=== PATIENT | female | born 1970 | race Caucasian/White ===

== ENCOUNTER 2017-05-15 01:51 | Inpatient (IN) | payer MEDICAID, OTHER ==
[~2017-05-15] VITALS: Ht 165.1 cm; Wt 86.2 kg
[2017-05-15 01:57] VITALS: BP 162/93; PULSE 129; RESP 21; O2SAT 93
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
[2017-05-15 04:31] VITALS: PULSE 77; RESP 14; O2SAT 95
[2017-05-15 05:46] LABS: Mean Corpuscular Hemoglobin 29.5 pg (27.0-35.0); Mean Corpuscular Volume 85.5 fL (81-100)
[2017-05-15 12:11] VITALS: BP 145/83; PULSE 66; RESP 18; O2SAT 99
[2017-05-15] MEDS ORDERED: LORazepam 1 mg Tablet PO ONE (13:15)
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
[2017-05-15] MEDS ORDERED: Magnesium Hydroxide 10 mL Oral Concentration PO PRN (14:55)
[2017-05-15] MEDS ORDERED: Benzocaine-Menthol Lozenge 2/Pkg PO PRN (14:55)
[2017-05-15] MEDS ORDERED: Alum-Mag Hydrox-Simeth 30 mL Suspension PO PRN (14:55)
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
[2017-05-15] MEDS: LORazepam 1 mg Tablet PO SCH (20:30)
--- NOTE | 2017-05-15 23:21 | NUR ---
Nurses Note Evening Patient has been maintained on 1:1 for safety. She awakened briefly to walk the hallway requesting to see her son in the morgue. Patient refused fluids or food or medications. Will continue 1:1 for safety. Addendum: 05/15/17 at 2335 by DEEDEE SEWELL RN Amended: Links added.
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
[2017-05-16] MEDS: LORazepam 1 mg Tablet PO PRN ×2 (03:27→14:48)
--- NOTE | 2017-05-16 05:38 | NUR ---
nursing, nights, 11-7 s- my baby. i just want to be with my baby. i've wanted to be with him for two days. no i don't need any medicine. i don't remember. o- has appeared to sleep after 2144. awoke and started sobbing. responded well to staff support and was able to calm. has one to one staff for safety with q 15 minutes. a- interupted sleep, no apparent physical distress. p- monitor behavior/emotional state, quality, times and amount of sleep, use and effect of medication. heather
--- NOTE | 2017-05-16 08:07 | NUR ---
Nursing Days The pt's friend, Janet, called this morning to share information. The friend stated Danya told her she was going to kill herself as soon as she leaves the hospital. This friend also shared that the patient's 16 year old son is also at risk for killing himself because he was also a witness to the family fight and suicide of his older brother. She reports she has been Danya's friend for over 20 years and is like a sister to her. She would like to be involved and a support to Danya during and after her hospitalization. Addendum: 05/16/17 at 1100 by ASHANTI URBINA RN Pt intermittently sobbing and sleeping in bed with a 1:1 sitter at bedside. She is currently declining all offered medication. She is repeatedly requesting to see her son. Doctor aware of her request. She has refused medications prior to court. Addendum: 05/16/17 at 1254 by ASHANTI URBINA RN Pt out on the patio with her 1:1 sitter for fresh air. The sitter shared that Danya told her she would like to have counseling for her and her family but did not have the knowledge or personal ability to coordinate that for herself. This information shared with both doctor and case management.
[2017-05-16] MEDS: LORazepam 1 mg Tablet PO SCH ×3 (08:30→19:47)
[2017-05-16 11:03] VITALS: BP 152/93; PULSE 80; RESP 14
--- NOTE | 2017-05-16 16:09 | PCM.PNPSY ---
Subjective Date of Service May 16, 2017 Subjective Patient continued tearful and had difficulty answering questions. She continued to express a desire to see her son in the morgue. I explained that this was not likely appropriate or helpful and that was recommended that she see him at the home. The patient continued to assert that she did not want any medications. I discussed with patient that she has a long-standing history of depression and irritability and that we would be writing for escitalopram that she was not required to take it. She was encouraged to take lorazepam as prescribed. Sleep: 6.25 hours Appetite: Has not eaten since arrival. Suicidal and homicidal ideation: nodded head yes to suicidal ideation but did not discuss plan or intent. Auditory hallucinations: denies Visual hallucinations: denies Other Psychotic Symptoms: N/A Anxiety: elevated Depression: elevated Current Medications Current Medications Escitalopram Oxalate 10 mg DAILY PO Last administered on 05/16/17 13:46; Admin Dose 10 MG; Start 05/16/17 at 13:10 Lorazepam 1 mg Q4H PRN PO Last administered on 05/16/17 14:48; Admin Dose 1 MG ; Start 05/15/17 at 14:55 Lorazepam 1 mg TID PO Last administered on 05/16/17 13:46; Admin Dose 1 MG; Start 05/15/17 at 20:30 Lorazepam 2 mg ONCE ONCE IM Last administered on 05/15/17 02:50; Admin Dose 2 MG; Start 05/15/17 at 02:05; Stop 05/15/17 at 02:06; Status DC Lorazepam 2 mg ONCE ONCE IM Last administered on 05/15/17 08:35; Admin Dose 2 MG; Start 05/15/17 at 08:10; Stop 05/15/17 at 08:11; Status DC Mental Status Exam Vital Signs Vital Signs Date Time Temp Pulse Resp B/P Pulse Ox O2 Delivery O2 Flow Rate FiO2 05/16/17 11:03 36.5 80 14 152/93 Appearance: Unkept Attitude: Guarded Behavior: Overtly anxious, Tearful Affect: Labile Mood: Depressed Thought Process/Associations: Other (poverty of speech) Speech Production: Soft, Mumbled Speech Rate: Lags/Latency Speech Articulation: Other (whispered) Thought Content: Negativistic Danger to Self/Suicidal Ideati: Passive Danger to Others: None Hallucinations: Auditory (Denies), Visual (Denies) Consciousness: Alert Orientation: Person, Place, Situation Memory: Untestable Estimate Intellectual Function: Unable to assess Attention/Concentration & Cogn: Unable to assess Insight: Limited Judgement: Poor Result Diagram: 05/15/17 0540 05/15/17 0540 Mental Health Plan The patient is a 47-year-old female with a reported 20 year history of depression without manic episodes, who was admitted to the hospital on an involuntary basis following the witnessed the suicide of her 23-year-old son. The patient has continued to remain tearful and has not been eating but has been drinking fluids. She has declined all oral medication including lorazepam. The patient had a visit with her and daughter and grief counselor's and was given resources today. [place] AXIS I: 1. Depression by history. 2. Acute stress reaction. 3. Rule out marijuana use disorder. AXIS II: Deferred. AXIS III: None. AXIS IV: Recent suicide of son, family stress, financial stress, recent new job. AXIS V: Global Assessment of Functioning 25. Treatments 1. The patient is admitted to the mental health unit and provided a safe and secure environment. 2. The patient is currently expressing suicidal ideation, and given the severity of the precipitating event and high risk of self harm, the patient will be placed on a one-to-one until she can safely contract for no self harm. 3. The patient will be encouraged to participate with group and milieu activities when her acute phase has resolved. 4. The patient will be seen by the treatment team on a routine basis to assess symptoms, side effects, and response to treatment. 5. The patient will be offered escitalopram 10 mg daily 6. Lorazepam 1 mg three times a day for acute stress with additional as needed. 7. Zolpidem 5 mg p.o. nightly p.r.n. insomnia. 8. Anticipated length of stay is 7-10 days. Avelino Rivas MD May 16, 2017 16:09
--- NOTE | 2017-05-16 17:04 | NUR ---
PRN's 1448 Ativan 1 mg for anxiety 10/10. Minimally effective, anxiety reduced to 9/10.
--- NOTE | 2017-05-16 17:24 | NUR ---
spiritual care: pt request brief caring visit in pt's room. she awoke briefly to voice, acknowledged our time together in ER yesterday. will plan to follow as needed and can coordinate with out pt bereavement services/counseling as needed.
--- NOTE | 2017-05-16 18:31 | NUR ---
Observations [id number] Pt under 1:1 observation. Spent much of her day in bed, crying. Pt did not eat any meals, but she did walk unit with 1:1 and spent time out on patio to get fresh air. Pt was also able to visit with family and grief counselor.She showered in the evening. She was observed every 15 minutes of shift as directed.
--- NOTE | 2017-05-16 18:40 | NUR ---
Machine Sewer/Counselor: S: "I don't want any pills" O: Patient slept 6.25 hours last night per staff. Patient reports thoughts of hurting herself. She denies H/I. She also denies auditory and visual hallucinations. Depression and anxiety were not rated. A: Patient is cooperative, sobbing, helpless, hopeless, depressed, distraught, no insight, no judgment. P: Follow the care plan, coordinate with out-patient providers, monitor behavior.
--- NOTE | 2017-05-16 20:11 | NUR ---
Nurses Note Evening Patient remains on 1:1 for safety. She remains tearful with a flat affect,depressed mood. Patient did shower and change her clothing. She drank one juice and has been ambulating with staff. Patient has been able to talk with staff at intervals but it results in tears. Continue 1;1 for safety and support. Addendum: 05/16/17 at 2020 by DEEDEE SEWELL RN Amended: Links added.
--- NOTE | 2017-05-17 03:47 | NUR ---
Nursing Noc Patient noted to spend the evening in Milieu watching TV. Appears detached and distracted, taking medications as directed. 1:1 sitter in use r/t patients inability to contract for safety. Continuing to monitor mood behavior and emotional state. Sleep time and quality. CP
[2017-05-17] MEDS: LORazepam 1 mg Tablet PO SCH ×3 (09:14→20:15)
--- NOTE | 2017-05-17 14:58 | NUR ---
NURSE NOTE DAY Orientation: x3 Mood: "I can't imagine how I will live." Endorses severe depression and some anxiety. Affect: Tearful. Thought Process/Content: "I just want to see my boy come in the door. The war inside me isn't over. Sometimes I want to to see my baby; sometimes I want to be here for my family." Endorses SI. Denies HI. Denies AH, VH. Behavior: Up for dog therapy, observed smiling when petting dog. Up walking with 1:1 in afternoon. otherwise, pt has isolated in room much of day. PRNs/NURS: Pt has 1:1 for suicidality.
--- NOTE | 2017-05-17 17:10 | NUR ---
spiritual care: follow up lengthy conversational visit in piano room. when invited to share story if she wished, pt described detailed account of the events and exchanges before her son's and subsequent thoughts, feelings and overwhelm. Pt expressive of her grief, weeping at times, and then returning to detailed story/reflecting. She engaged easily with leading questions including her experiences of emotion: guilt, regret and shock. Pt reflected on yesterday's visit with catrachita, her desire to contact friends (lacking phone numbers at the moment) and the care/professionalism of [facility] staff. She also shared her concern for her other (younger) son and her hopes for finding meaningful help for him. Pt's grief/shock responses seemed appropriate to the situation. In processing her shock and dismay, pt shared the specific measures she had put into place as a condition of the family having a gun (locked, secured, etc.) Pt shared also of many measures she had taken over her son's life to try to seek help for him as she encountered various signs of his distress. category planner met privately with pt and i returned to continue our visit. Pt shared insights about family history, self and specific hopes for future--being with others who knew and loved her son and sharing time with others who are also deeply grieving him. Pt acknowledged the enormity of changes in her family/personal/spiritual/emotional landscape and responded to metaphor from scriptures (companionship to be found even in wilderness); she was agreeable for my suggestion/offer to follow up saturday morning to know how spiritual care as well as [facility] staff can continue to support her through this time. Pt expressed gratitude for conversation and received blessing.
--- NOTE | 2017-05-17 18:12 | NUR ---
nursing note 7pm Pt requested to take the antidepressant medication that she refused earlier today, had visit with family and was given a shirt with her sons picture and memorial on the front, visit with family seemed supportive
--- NOTE | 2017-05-17 18:26 | NUR ---
[facility] Day Shift Pt remains on 1:1 sitter status for suicide precaution. Pt spends most of the AM resting in her room, more active on the unit in the afternoon and evening. Pt affect appears mostly flat, sad, somewhat brighter in the afternoon and evening. Pt is appropriate with staff and peers when active on the unit, though pt speaks in a very low volume, making interactions somewhat difficult. Pt did not attend community meeting in the AM, but did participate in group activities throughout the shift. Pt attended all meals and ate approx 70% of all meals.
[2017-05-17 19:00] VITALS: BP 142/93; PULSE 65; RESP 14
--- NOTE | 2017-05-17 19:17 | NUR ---
Marketing And Communications Officer/Counselor: S: "It's a war inside." O: Patient slept 7+ hours last night per staff. Patient reports that she has less thoughts of hurting herself. She denies H/I. She also denies auditory and visual hallucinations. Depression is rated as "yes." Anxiety was rated as "a lot." This sports writer spoke with patient's and daughter. They both feel that the patient really need to attend her son's [facility] Saturday at 11:00am. They told this sports writer that patient will be safe if she's allowed to attend her son's [facility]. A: Patient is cooperative, sad, depressed, distraught, poor insight, poor judgment. P: Follow the care plan, coordinate with out-patient providers.
--- NOTE | 2017-05-17 23:10 | PCM.PNPSY ---
Subjective Date of Service May 17, 2017 Subjective The patient reports ongoing sadness regarding the of her son. She did take lorazepam but declined escitalopram. Discussed patients reported long history of depression. Patient did begin eating today. She also is attending to hygiene. The patient has requested to go to the [facility] service, but given report of plan to self-harm this will need to be discussed with risk and upper management before a definitive answer can be provided. Sleep: 7 hours Appetite: Ate some breakfast Suicidal ideation: endorsed suicidal ideation without clear plan or intent. Homicidal ideation: denies Auditory hallucinations: denies Visual hallucinations: denies Other Psychotic Symptoms: N/A Anxiety: elevated Depression: elevated Current Medications Current Medications Escitalopram Oxalate 10 mg DAILY PO Last administered on 05/16/17 13:46; Admin Dose 10 MG; Start 05/16/17 at 13:10 Lorazepam 1 mg TID PO Last administered on 05/17/17 15:38; Admin Dose 1 MG; Start 05/15/17 at 20:30 Mental Status Exam Appearance: Neat/well groomed Attitude: Guarded Behavior: Overtly anxious, Tearful Affect: Restricted Mood: Depressed Thought Process/Associations: Other (poverty of speech) Speech Production: Soft, Mumbled Speech Rate: Lags/Latency Speech Articulation: Other (whispered) Thought Content: Negativistic Danger to Self/Suicidal Ideati: Passive Danger to Others: None Hallucinations: Auditory (Denies), Visual (Denies) Consciousness: Alert Orientation: Person, Place, Date, Situation Memory: Untestable Estimate Intellectual Function: Unable to assess Attention/Concentration & Cogn: Unable to assess Insight: Limited Judgement: Poor Result Diagram: 05/15/17 0540 05/15/17 0540 Mental Health Plan The patient is a 47-year-old female with a reported 20 year history of depression without manic episodes, who was admitted to the hospital on an involuntary basis following the witnessed suicide of her 23-year-old son. The patient has continued to remain tearful and has not been eating but has been drinking fluids. She has declined all oral medication including lorazepam. The patient had a visit with her and daughter and grief counselor's and was given resources today. Given the patient's ongoing suicidal ideation, poor self care and refusal of medication, visitation for whether accompanied or not may not be appropriate at this time. [place] AXIS I: 1. Depression by history. 2. Acute stress reaction. 3. Rule out marijuana use disorder. AXIS II: Deferred. AXIS III: None. AXIS IV: Recent suicide of son, family stress, financial stress, recent new job. AXIS V: Global Assessment of Functioning 25. Treatments 1. The patient is admitted to the mental health unit and provided a safe and secure environment. 2. The patient is currently expressing suicidal ideation, and given the severity of the precipitating event and high risk of self harm, the patient will be placed on a one-to-one until she can safely contract for no self harm. 3. The patient will be encouraged to participate with group and milieu activities when her acute phase has resolved. 4. The patient will be seen by the treatment team on a routine basis to assess symptoms, side effects, and response to treatment. 5. The patient will be offered escitalopram 10 mg daily 6. Lorazepam 1 mg three times a day for acute stress with additional as needed. 7. Zolpidem 5 mg p.o. nightly p.r.n. insomnia. 8. Anticipated length of stay is 7-10 days. Avelino Rivas MD May 17, 2017 16:58
[2017-05-18] MEDS: LORazepam 1 mg Tablet PO PRN (03:13)
--- NOTE | 2017-05-18 05:01 | NUR ---
Nursing Noc Pt slept well this shift. Up once to check time and request antianxiety. Patient was medicated with PRN and returned to sleep. Pt with linear thought processes and presents much more at ease and relaxed. Patient initiated conversation regarding sitter and when is her shift going to end. Continuing to monitor mood behavior and emotional state. 1:1 sitter in use at this time. CP
[2017-05-18] MEDS: LORazepam 1 mg Tablet PO SCH ×3 (08:41→20:27)
--- NOTE | 2017-05-18 13:36 | NUR ---
NURSE NOTE DAY Mood: Endorses severe depression and some anxiety. Affect: Tearful, depressed. Behavior: Pt up in common areas much of morning. Spoke on the phone with pt reported that he told her that the family had been evicted from her apartment. Pt spoke with doctor. Engaged in drawing and writing per staff suggestion. Thought Content/Process: "I don't know how I'll go on. The only thing that I have to look forward to is seeing my grandchildren and saying goodbye to my son." Endorses vague SI without a plan. PRN/NURS Notes: Pt currently with 1:1 r/t suicide risk.
--- NOTE | 2017-05-18 14:38 | PCM.PNPSY ---
Subjective Date of Service May 18, 2017 Subjective I spent 30 minutes both reviewing treatment plan with our clinical team, interviewing the patient and providing supportive/educational psychotherapy. I spent more than 50% of the time counseling the patient. I reviewed the treatment plan with the patient and discussed options available including the potential risks, benefits and side effects. [place] reports a slight improvement in thought organization and mood stability. Staff reports that she has been isolating and participating minimally in one-to-one unit and group activities. She slept 10 hours and denies psychotic symptoms review. She reports multiple symptoms of depression although is currently is denying suicidal ideation. She is resistant to taking psychiatric medications as she believes this is the part of a normal grief reaction. She is very concerned about being able to attend her son's this Saturday. Mental Status Exam Appearance: Neat/well groomed Attitude: Guarded Behavior: Overtly anxious, Tearful Affect: Restricted Mood: Depressed Thought Process/Associations: Other (poverty of speech) Speech Production: Soft, Mumbled Speech Rate: Lags/Latency Speech Articulation: Other (whispered) Thought Content: Negativistic Danger to Self/Suicidal Ideati: Passive Danger to Others: None Consciousness: Alert Orientation: Person, Place, Date, Situation Memory: Untestable Estimate Intellectual Function: Unable to assess Attention/Concentration & Cogn: Unable to assess Insight: Limited Judgement: Poor Result Diagram: 05/15/17 0540 05/15/17 0540 Mental Health Plan The patient is a 47-year-old female with a reported 20 year history of depression without manic episodes, who was admitted to the hospital on an involuntary basis following the witnessed suicide of her 23-year-old son. The patient has continued to remain tearful and has not been eating but has been drinking fluids. She has declined all oral medication including lorazepam. I reviewed the chart and records Since she was admitted to our unit. Today she states that suicidal ideation has resolved. She longs to be with her son but no longer is actively wishing to end her life. I reviewed with her different medication options and she stated that she would consider these. She remains severely depressed and in the middle of a major grief reaction. [place] AXIS I: 1. Depression by history. 2. Acute stress reaction. 3. Rule out marijuana use disorder. AXIS II: Deferred. AXIS III: None. AXIS IV: Recent suicide of son, family stress, financial stress, recent new job. AXIS V: Global Assessment of Functioning 30 Treatments Patient is being provided with a high degree of safety through our unit structure and active adult engagement provided by our mental health professionals, mental health technicians, psychiatric nurses and myself. We are focusing on developing improved coping skills and identifying stressors that may have led to current episode. We will attempt to: * Integrate into therapeutic groups, milieu and individual therapy. * Maintain in a closely monitored and structured unit * Provide low-stimulation environment * Obtain collateral data to assist in treatment planning * Assess degree of lability of affect and impulse control * Complete safety plan * Decrease frequency of relapse and need for re-hospitalization * Denies thoughts of harm to self and/or others * Establish a consistent sleep pattern * Medication effective in stabilization of mood and/or thought process * Reduce the risk of imminent harm to self and/or others by providing a safe environment * Tolerates medication without side effects Patient will be on the following psychiatric medications: Patient declining offers for medications at this time Patient's legal status Patient is on a 14 day involuntary treatment hold. Patient will be given the opportunity to talk to her bdr and the boat officer Anticipated number of hospital days to achieve above goals: 7 Disposition: Home Bharat Romo MD May 18, 2017 14:37
[2017-05-18 16:23] VITALS: BP 136/81; PULSE 84; RESP 18
--- NOTE | 2017-05-18 18:10 | NUR ---
Medical Consultant/Counselor S:"I'd really like to do more mindfulness." O: Patient denies any SI or HI, no AVH, rated her anxiety at a 6 and her depression at an 8. A: Patient participated in mindfulness group and stated that she enjoyed it and would like more exercises. She has been out on the unit. She is tearful and depressed but responds appropriately to staff. P: Follow care plan and coordinate with outpatient providers.
--- NOTE | 2017-05-18 18:20 | NUR ---
[facility] Day Shift Pt maintained behavioral control throughout the shift. Pt spends most of the shift interacting with peers in the dining room and engaging in unit activities. Pt affect appears mostly flat, sad, though brighter than noted on previous shift. Pt is appropriate with staff and peers when active on the unit. Pt attended community meeting and all group activities throughout the shift. Pt attended all meals and ate approx 70% of all meals.
--- NOTE | 2017-05-18 20:51 | NUR ---
NURSING NOTE [id number] Mood: "I don't know what to do... I'm trying..." Affect: flat, sad, intermittently tearful Behavior: pt. has been active and visible on the unit; she was strumming guitar at start of shift, social off and on w/peers, visited w/her and later her friend. Pt. took a shower. Pt. was tearful at one point mid-shift and collected herself w/staff reassurance and later came out to sit w/some of her peers in the DR, chatting and working on a puzzle together. Pt. med compliant at HS. Thought processes: pt. continues to be depressed, denies SI, reports she has been working on distracting herself throughout the day "so I can get through" but that she still has moments where she ruminates on the moments leading up to her son's suicide and what she could have done differently.
--- NOTE | 2017-05-19 06:08 | NUR ---
Nursing Note Supervisor Filling And Packing 11pm-7am Patient was in bed at start of shift. She was noted to be asleep at 2200 and remains asleep at current time with 8+ hours. Pt monitored q 15 minutes for safety, location and accountability.
[2017-05-19] MEDS: LORazepam 1 mg Tablet PO SCH ×2 (08:10→14:30)
--- NOTE | 2017-05-19 14:01 | PCM.PNPSY ---
Subjective Date of Service May 19, 2017 Subjective I spent 30 minutes both reviewing treatment plan with our clinical team, interviewing the patient and providing supportive/educational psychotherapy. I spent more than 50% of the time counseling the patient. I reviewed the treatment plan with the patient and discussed options available including the potential risks, benefits and side effects. [place] reports a slight improvement in thought organization and mood stability. Staff reports that she has been isolating and participating minimally in one-to-one unit and group activities. She slept 9 hours and denies psychotic symptoms review. She reports multiple symptoms of depression although is currently is denying active suicidal ideation. She is resistant to taking psychiatric medications as she believes this is the part of a normal grief reaction but is taking Lexapro and Ativan. She is very concerned about being able to attend her son's this Saturday. We problem solved different ways that we could make this happen. She believes she can maintain safety if accompanied by a staff member. Mental Status Exam Appearance: Neat/well groomed Attitude: Pleasant, Cooperative Behavior: Overtly anxious, Tearful Affect: Restricted Mood: Depressed Thought Process/Associations: Logical/Sequential, Goal Directed Speech Production: Normal Speech Rate: Normal Speech Articulation: Normal Thought Content: Negativistic Danger to Self/Suicidal Ideati: Passive Danger to Others: None Consciousness: Alert Orientation: Person, Place, Date, Situation Memory: Grossly Intact Estimate Intellectual Function: Average Attention/Concentration & Cogn: Grossly Intact Insight: Good Judgement: Limited Result Diagram: 05/15/17 0540 05/15/17 0540 Mental Health Plan The patient is a 47-year-old female with a reported 20 year history of depression without manic episodes, who was admitted to the hospital on an involuntary basis following the witnessed suicide of her 23-year-old son. The patient has continued to remain tearful and has not been eating but has been drinking fluids. She has now agreed to take medications as prescribed including lorazepam. I reviewed the chart and records Since she was admitted to our unit. Today she states that suicidal ideation has resolved. She longs to be with her son but no longer is actively wishing to end her life. I reviewed with her different medication options and she stated that she is willing to take the Lexapro and Ativan. She remains markedly depressed and in the middle of a major grief reaction. She denies acute suicidal ideation but is requesting more inpatient days. At the same time she is requesting to be able to attend the of her son tomorrow morning. [place] AXIS I: 1. Depression by history. 2. Acute stress reaction. 3. Rule out marijuana use disorder. AXIS II: Deferred. AXIS III: None. AXIS IV: Recent suicide of son, family stress, financial stress, recent new job. AXIS V: Global Assessment of Functioning 30 Treatments Patient is being provided with a high degree of safety through our unit structure and active adult engagement provided by our mental health professionals, mental health technicians, psychiatric nurses and myself. We are focusing on developing improved coping skills and identifying stressors that may have led to current episode. We will attempt to: * Integrate into therapeutic groups, milieu and individual therapy. * Maintain in a closely monitored and structured unit * Provide low-stimulation environment * Obtain collateral data to assist in treatment planning * Assess degree of lability of affect and impulse control * Complete safety plan * Decrease frequency of relapse and need for re-hospitalization * Denies thoughts of harm to self and/or others * Establish a consistent sleep pattern * Medication effective in stabilization of mood and/or thought process * Reduce the risk of imminent harm to self and/or others by providing a safe environment * Tolerates medication without side effects Patient will be on the following psychiatric medications: Lexapro 10 mg every morning Ativan 1 mg 3 times a day Patient's legal status Patient is on a 14 day involuntary treatment hold. Patient will be given the opportunity to talk to her arborist and the administrative judge Anticipated number of hospital days to achieve above goals: 7 Disposition: Home Bharat Romo MD May 19, 2017 14:01
--- NOTE | 2017-05-19 14:22 | NUR ---
NURSE NOTE DAY Mood: Depressed. Affect: Tearful, depressed. Behavior: Pt sleeping much of morning. Up for meals. Spoke with advertising writer about childhood in [place] and concerns about her future. Thought Content/Process: "If I lose another child, I wont be able to make it. I'll be [place] the river with a bottle of pills and a big bottle of wine." Endorses vague SI, without a specific plan at present. Pt does not endorse AH, VH. Pt does not endorse HI. PRN/NURS Notes: Pt discussed plan to attend with Dr. Romo -- pt requested to go to , escorted by hospital staff, and return to hospital following the gathering.
--- NOTE | 2017-05-19 17:53 | NUR ---
[facility] Day Shift Pt affect and behavior mostly unchanged from previous shift. Pt maintained behavioral control throughout the shift. Pt affect appears mostly flat, sad (brighter when engaged with staff and peers). Pt spends most of the shift interacting with peers in the dining room and engaging in unit activities. Pt is appropriate with staff and peers when active on the unit. Pt attended community meeting and all group activities throughout the shift. Pt attended all meals and ate approx 70% of all meals.
--- NOTE | 2017-05-19 18:08 | NUR ---
Marketing Automation Analyst/Counselor S:"I took my pill today." O: Patient denies any SI or HI, no AVH, rated her depression at a 7 and her anxiety at a 4. A: Patient has kept to her room for most of the day but did walk some on the unit. Patient and this report writer, as well as patient's nurse Lizeth and Patient's , safety planned with the patient. Patient identified triggers, coping mechanism, people and settings that would provide a distraction, as well as being given numbers to crisis lines, people she can ask for help, etc. Patient would like grief and family counseling once discharged. Patient slept for 8 hours. P: Follow care plan and coordinate with outpatient providers, as well as family.
[2017-05-19] MEDS: LORazepam 0.5 mg Tablet PO PRN (20:28)
--- NOTE | 2017-05-19 22:31 | NUR ---
NURSING NOTE [id number] Mood: "I don't know" Affect: sad, withdrawn, depressed. Tearful at times. Behavior: pt. spent some time in the group room, visible off and on in DR, attended a family mtg w/her and rn case manager hospice and this telegraphic typewriter operator to discuss and develop a safety plan for the pt. Thought processes: pt. denies feeling suicidal this evening. She identifies her grandchildren as being "what keeps me alive" and that "they're like air to me." Pt. endorses depression and feeling "numb". Pt. is consolable w/reassurance and support from staff and her . PRNs Ativan 0.5 mg and Ambien 5 mg @ HS
--- NOTE | 2017-05-20 04:59 | NUR ---
Nursing Note Accounts Payable Processor 11pm to 7am Pt asleep at start of shift and remained asleep the duration of the shift with no issues reported or observed. Monitored pt with q 15 minute face checks for safety, location and accountability
--- NOTE | 2017-05-20 10:08 | NUR ---
Nursing Day Pt up this morning eating breakfast and visiting with a female peer. She willingly took her morning medication stating 'I am doing what I need to do." Pt then asked if she would be able to go to her son's memorial service this. She became upset after speaking with the doctor and finding out she could not go to her son's due to her being in the hospital on a legal hold. She spoke with her on the phone. She requested to speak with both management and the doctor. She has been seen by both. Pt is angry regarding the situation and crying in her room. Staff present 1:1 for safety.
--- NOTE | 2017-05-20 11:23 | NUR ---
spiritual care: follow up conversational visit in common room, pt described her coping, anticipation for attending son's service and seeing friends and family members. pt reflective and expressive about things that are helping her manage grief (caring about others, planning for future, focusing on her grandchildren "the light of my life!" and repeated her desire for intensive grief counseling for herself and family members as she looks toward the future and anticipates changes. pt offered her thoughts: "take it one step at a time" blessing.
--- NOTE | 2017-05-20 13:26 | PCM.PNPSY ---
Subjective Date of Service May 20, 2017 Subjective I spent 30 minutes both reviewing treatment plan with our clinical team, interviewing the patient and providing supportive/educational psychotherapy. I spent more than 50% of the time attempting to retirement plan counselor the patient. I also met with her and our program associate to explain our treatment team recommendations. I reviewed the treatment plan with the patient and discussed options available. Enid was focused on attending her son's today. I reviewed the safety plan with her treatment team. We also reviewed the case with Dr. Denton. As a group we did not feel that we could maintain her safety given our understanding of the current condition (the severity of the trauma she experienced, her present emotional/mental state, and the support she would need outside the hospital). We were concerned about safety given client's current fragile condition. Enid could not participate in the interview. She began weeping loudly and later began shouting vulgarities at the physician. Staff reports that she has been isolating and participating minimally in unit activities. She did work diligently on her safety plan over the weekend with our therapist. She slept well. She reports multiple symptoms of depression although is currently is denying active suicidal ideation. She is resistant to taking psychiatric medications as she believes this is the part of a normal grief reaction but is taking Lexapro and Ativan. Current Medications Current Medications Lorazepam 0.5 mg TID PRN PO Last administered on 05/19/17t 20:28; Admin Dose 0.5 MG; Start 05/19/17 at 16:05 Mental Status Exam Appearance: Neat/well groomed Attitude: Pleasant, Cooperative Behavior: Overtly anxious, Tearful Affect: Labile Mood: Depressed, Other (angry) Thought Process/Associations: Goal Directed Speech Production: Loud Speech Rate: Normal Speech Articulation: Normal Thought Content: Negativistic Danger to Self/Suicidal Ideati: Passive Danger to Others: None Consciousness: Alert Orientation: Person, Place, Date, Situation Memory: Grossly Intact Estimate Intellectual Function: Average Attention/Concentration & Cogn: Grossly Intact Insight: Limited Judgement: Limited Result Diagram: 05/15/17 0540 05/15/1740 Mental Health Plan The patient is a 47-year-old female with a reported 20 year history of depression without manic episodes, who was admitted to the hospital on an involuntary basis following the witnessed suicide of her 23-year-old son. The patient was initially tearful and not eating. She has now agreed to take medications as prescribed including lorazepam. She is now eating and sleeping on a regular schedule. She remains markedly depressed and in the middle of a major grief reaction. She denies acute suicidal ideation but is requesting more inpatient days. She stated that she felt that she would be okay during the but felt that the suicidal impulse was still present and that she needed to be in the hospital. Her also felt that she would be okay during the but felt that she was still suicidal and needed to be in the hospital. She has met with her hand bobbin cleaner and found this to be very helpful. She has had several long sessions with me on Saturday and Saturday and participated well in those sessions. She also has been doing good work in one-to-one sessions with her therapist and our nursing staff. In my professional opinion I do not believe it is in her best therapeutic interest to attend the . We encouraged her to work on grief and loss issues here on the unit. We encouraged the family to postpone the until Danya can be more stabilized. Due to this difficult highly charged situation I consulted Dr. Denton, our program associate Chata consulted administration and risk management. The consensus of our treatment team was that the risks associated with leaving the structure of our unit at this time outweighed the potential benefits. She remains on an involuntary treatment hold placed by the court. She will be able to talk with the control valve mechanic in the morning. We will continue to provide her with structure, care and active adult engagement. [place] AXIS I: 1. Depression by history. 2. Acute stress reaction. 3. Rule out marijuana use disorder. AXIS II: Deferred. AXIS III: None. AXIS IV: Recent suicide of son, family stress, financial stress, recent new job. AXIS V: Global Assessment of Functioning 30 Treatments Patient is being provided with a high degree of safety through our unit structure and active adult engagement provided by our mental health professionals, mental health technicians, psychiatric nurses and myself. We are focusing on developing improved coping skills and identifying stressors that may have led to current episode. We will attempt to: * Integrate into therapeutic groups, milieu and individual therapy. * Maintain in a closely monitored and structured unit * Provide low-stimulation environment * Obtain collateral data to assist in treatment planning * Assess degree of lability of affect and impulse control * Complete safety plan * Decrease frequency of relapse and need for re-hospitalization * Denies thoughts of harm to self and/or others * Establish a consistent sleep pattern * Medication effective in stabilization of mood and/or thought process * Reduce the risk of imminent harm to self and/or others by providing a safe environment * Tolerates medication without side effects * Patient will be on the following psychiatric medications: Lexapro 10 mg every morning Ativan .5 mg 3 times a day when necessary Patient's legal status Patient is on a 72 hour involuntary treatment hold. Patient will be given the opportunity to talk to her history tutor today and the control valve mechanic in the morning Anticipated number of hospital days to achieve above goals: 7 Disposition: Home Bharat Romo MD May 20, 2017 13:26
--- NOTE | 2017-05-20 14:18 | NUR ---
Pt denies suicidal thoughts. She has been visible out on the unit working on a puzzle with a female peer. C/O constipation requested and received prune juice. Cooperative with care.
--- NOTE | 2017-05-20 18:06 | NUR ---
Insurance Marketing Rep/Counselor S:"I need to live for my grandchildren." O: Patient denies any SI or HI, no AVH, and was not asked about anxiety or depression due to the nature of her current state of mind. A: Patient fluctuating between anger and being upset throughout the day, but has been interacting with other patients later in the day. She is out in the common room and stated that she is trying to not isolate herself. P: Follow care plan and coordinate with outpatient providers.
[2017-05-20 19:08] VITALS: BP 139/86; PULSE 68; RESP 17
[2017-05-20] MEDS: LORazepam 0.5 mg Tablet PO PRN (21:29)
--- NOTE | 2017-05-20 21:47 | NUR ---
Nurses Note Evening "You are nothing but a bunch of puppets." Patient has been angry most of this shift with periods of yelling and crying regarding the team decision of no visitation tonight. See physician progress note. She remained in the common room or patio with staff. Patient expressed positive thoughts about her daughter and grandchildren being in her life.Patient requested and received Ativan 0.5mg at 2130 for anxiety,shift manager to assess response. Will maintain q 15min. checks for safety and support. Addendum: 05/20/17 at 2200 by DEEDEE SEWELL RN Amended: Links added.
--- NOTE | 2017-05-21 02:30 | NUR ---
Observations 1900 to 0700 Pt attended and participated in wrap up group. Pt ate a snack. Pt reported of mood starting at 1 going to 5. Pt showered and had clothes washed. Pt spends free time in common areas socializing with peers. Pt is pleasant and cooperative with a sad affect. Pt maintained behavioral control and showed no signs of abnormal behavior. Pt appeared asleep at 2300 and has remained asleep. Pt respirations were observed when asleep. Staff completed 15 min close observations as ordered.
--- NOTE | 2017-05-21 04:22 | NUR ---
Nursing Note Electron Beam Machine Welder Setter 11pm to 7am Pt asleep at start of shift and remained asleep for the duration. No issues reported or observed Monitored pt. with q 15 minute face checks for safety location and accountability
--- NOTE | 2017-05-21 10:33 | NUR ---
Nursing Day Pt awake this morning with a sad smile. She ate breakfast and took her scheduled dose of Lexapro. She saw junior paralegal prior to court. After court she was seen with a brighter smile and briefly visiting with two of her peers. Her and another family member visited after court. Pt has developed a good relationship with two peers on the unit which she finds supportive. No noted or expressed SI. Continue to monitor and provide support as needed.
[2017-05-21] MEDS ORDERED: ESCI10TA52 PO (10:38)
[2017-05-21] MEDS ORDERED: ZLP5T PO (10:38)
--- NOTE | 2017-05-21 10:41 | PCM.DIMED ---
Discharge Instructions Date of Service May 21, 2017 Dates of Hospitalization May 15, 2017 at 12:59 Discharge Diagnosis Discharge Diagnosis AXIS I: 1. Depression unspecified 2. Acute stress reaction. 3. Rule out marijuana use disorder. AXIS II: Deferred. AXIS III: None. AXIS IV: Recent suicide of son, family stress, financial stress, recent new job. AXIS V: Global Assessment of Functioning 40 Medication Instructions Additional med instructions I Strongly encouraged patient to follow up with outpatient care: 1-Recommended patient takes medication as prescribed and not alter this unless under the direct care of a provider. 2-Recommend client refrain from recreational drugs and alcohol while taking psychiatric medications. 3--Recommend patient attempt to find a therapist or group to deal with impulse control and interpersonal relationship conflicts Diet Discharge Diet: No restrictions Activity Discharge Activity: No restrictions Call your provider Call your provider for: Fever or Chills Patient Instructions Patient Instructions Patient will have follow-up through [facility]. Specific appointments being made by her case mean community development manager Ritika lowry. Please see her summary for specific follow-up times per therapist and provider. Follow-up with PCP in: 2 weeks Bharat Romo MD May 21, 2017 10:41
--- NOTE | 2017-05-21 11:17 | NUR ---
Septic Tank Installer/Counselor S:"I'm thankful for everything you all have done." O/A: Patient is being discharged today and will go to the motel provided by her apartment management. Patient will follow up with [facility], and [facility]22[facility]2017 at 8:30am. Patient has been provided with telephone numbers for 2 grief counselors, phone numbers to the crisis line, the [facility], Care Center, and national suicide hotline. Patient has been provided with an additional safety plan and has identified any potential triggers as well as identified her support network. Patient feels cautiously optimistic and is looking forward to attending counseling sessions with her family. P: Follow discharge plans.
--- NOTE | 2017-05-21 11:42 | NUR ---
Discharge Pt discharged @ 1135 to the care of her and another family member. She denies suicidal thoughts. Prescriptions faxed to [facility] in [place]. She signed all discharge instructions and verbalized understanding. Provided all belongings. She was smiling and expressed thankfulness to staff for everything.
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
== END 2017-05-21 11:35 | disposition home or self-care (01) | DRG 881 ==
LOC: EDBD 01:51 → SED 01:51 → MHC 12:59
PROVIDERS: ADMIT Psychiatry & Neurology Psychiatry; ATTEND Psychiatry & Neurology Psychiatry
DX: F32.9 Major depressive disorder, single episode, unspecified (principal); R45.851 Suicidal ideations; F43.0 Acute stress reaction